=== PATIENT | female | born 1995 | race Caucasian/White ===

== ENCOUNTER 2017-02-06 21:51 | Emergency (ER) | payer SELFPAY ==
--- NOTE | 2017-02-06 21:53 | NUR ---
PATIENT LEFT WITHOUT BEING SEEN BY DR. FERNANDEZ. NO FURTHER CARE PROVIDED FOR PATIENT.
== END 2017-02-06 21:53 | disposition left against medical advice (07) ==
LOC: MED 21:51
DX: R51 Headache (principal); Z53.21 Procedure and treatment not carried out due to patient leaving prior to being seen by health care provider